=== PATIENT | female | born 1980 | race Caucasian/White ===

== ENCOUNTER 2017-02-27 15:57 | Emergency (ER) | payer MEDICARE, MEDICAID ==
--- NOTE | 2017-02-27 16:01 | UC ---
Respiratory Complaint HPI - HPI Summary HPI Summary: 37 YEAR OLD FEMALE PRESENTS WITH COMPLAINS OF COUGH, WHEEZING, FEVER AND CHILLS. - History of Current Complaint Stated Complaint: COUGH FEVER CONGESTION Time Seen by Provider: 02/27/17 16:00 Hx Obtained From: Patient Hx Last Menstrual Period: 1 week ago Onset/Duration: Sudden Onset Severity Initially: Moderate Severity Currently: Moderate Pain Scale Used: 0-10 Numeric - 5 Character: Cough: Nonproductive Associated Signs And Symptoms: Positive: Chills, Wheezing - Allergies/Home Medications Allergies/Adverse Reactions: Allergies Allergy/AdvReac Type Severity Reaction Status Date / Time Morphine Allergy Difficulty Verified 02/27/17 16:04 Breathing Sulfamethoxazole Allergy Hives Verified 02/27/17 16:04 w/Trimethoprim [From ] Home Medications: Home Medications [id number] [Night Time Multi-Symptom 15-6.25-325 mg] 1 cap PO PRN 02/27/17 [History] Haloperidol TAB* [Haldol TAB*] 20 mg PO Q8H 02/27/17 [History Confirmed 02/27/17 ] PMH/Surg Hx/FS Hx/Imm Hx Previously Healthy: Yes Other History Of: Negative For: HIV, Hepatitis B, Hepatitis C - Surgical History Surgical History: Yes Surgery Procedure, Year, and Place: back and knee surgeries - Family History Known Family History: Positive: Hypertension, Other - Schizophrenia. Negative: Cardiac Disease, Renal Disease - Social History Alcohol Use: Rare Substance Use Type: None Smoking Status (MU): Light Every Day Tobacco Smoker Amount Used/How Often: 3-4 cigs per day Length of Time of Smoking/Using Tobacco: ~ 10 years Review of Systems Constitutional: Negative Skin: Negative Eyes: Negative ENT: Negative Respiratory: Shortness Of Breath, Cough Cardiovascular: Negative Gastrointestinal: Negative Genitourinary: Negative Motor: Negative Neurovascular: Negative Musculoskeletal: Negative Neurological: Negative Psychological: Negative All Other Systems Reviewed And Are Negative: Yes Physical Exam Triage Information Reviewed: Yes Eye Exam: Normal ENT Exam: Normal Dental Exam: Normal Neck exam: Normal Neck: Positive: 1 Respiratory Exam: Normal Respiratory: Positive: Rhonchi, Wheezing Cardiovascular Exam: Normal Abdominal Exam: Normal Musculoskeletal Exam: Normal Neurological Exam: Normal Psychological Exam: Normal Skin Exam: Normal Respiratory Course/Dx - Differential Dx/Diagnosis Provider Diagnoses: COUGH. WHEEZING. BRONCHITIS Discharge - Discharge Plan Condition: Stable Disposition: HOME Prescriptions: Albuterol HFA INHALER* [Ventolin HFA Inhaler*] 1 puff INH Q6H PRN #1 mdi PRN Reason: Wheezing Amoxicillin/Clavulanate TAB* [Augmentin TAB 875*] 875 mg PO BID #20 tab LoraTADine TAB(NF) [Claritin 10 MG TAB(NF)] 10 mg PO DAILY #30 tab guaiFENesin/CODIEN 100MG-10MG* [Robitussin AC 100Mg-10Mg*] 5 ml PO Q6H PRN #120 ml MDD 20 ML PRN Reason: Cough Patient Education Materials: Acute Cough (ED) Referrals: Jennifer Mccoy [Primary Care Provider] -
[2017-02-27 16:14] VITALS: BP 133/86
== END 2017-02-27 16:29 | disposition home or self-care (01) ==
LOC: UCCORT 15:57
DX: J40 Bronchitis, not specified as acute or chronic (principal); Z88.5 Allergy status to narcotic agent; Z88.2 Allergy status to sulfonamides; F17.210 Nicotine dependence, cigarettes, uncomplicated
CPT/HCPCS: 99212; G0463